=== PATIENT | female | born 1995 | race African-American/Black ===

== ENCOUNTER 2017-02-18 20:00 | Emergency (ER) | payer OTHER ==
--- NOTE | 2017-02-18 20:46 | ED ---
Abdominal Pain/Female - HPI Summary HPI Summary: 21 YEAR OLD FEMALE PRESENTS WITH COMPLAINS OF SEVERE EPIGASTRIC PAIN. - History of Current Complaint Chief Complaint: UCGI Stated Complaint: STOMACH Time Seen by Provider: 02/18/17 20:45 Hx Obtained From: Patient Hx Last Menstrual Period: 02/12/17 Onset/Duration: Sudden Onset Timing: Constant Severity Initially: Moderate Severity Currently: Moderate Pain Scale Used: 0-10 Numeric - 5 Location: Epigastric Radiates: No Allergies/Adverse Reactions: Allergies Allergy/AdvReac Type Severity Reaction Status Date / Time No Known Allergies Allergy Verified 02/18/17 20:36 PMH/Surg Hx/FS Hx/Imm Hx Endocrine/Hematology History: Denies: Hx Diabetes, Hx Thyroid Disease Cardiovascular History: Denies: Hx Hypertension Respiratory History: Reports: Hx Asthma Denies: Hx Chronic Obstructive Pulmonary Disease (COPD) GI History: Denies: Hx Ulcer History: Reports: Hx Kidney Stones, Hx Renal Disease Comment Only: Other Problems/Disorders - hx of kidney stones Neurological History: Comment Only: Other Neuro Impairments/Disorders - hx of migrains and hx of 3 o4 previous concussions - Surgical History Surgery Procedure, Year, and Place: 1996 inguinal hernia. 2003 tonsilectomy. 2006 left eyebrow angioma 2006. ectopic feb 2016 Infectious Disease History: No Infectious Disease History: Denies: Hx Clostridium Difficile, Hx Hepatitis, Hx Human Immunodeficiency Virus (HIV), Hx of Known/Suspected MRSA, Hx Shingles, Hx Tuberculosis, Hx Known/ Suspected VRE, Hx Known/Suspected VRSA, History Other Infectious Disease, Traveled Outside the [place] in Last 30 Days - Social History Alcohol Use: None Substance Use Type: Reports: None Smoking Status (MU): Never Smoked Tobacco Have You Smoked in the Last Year: No Review of Systems Constitutional: Negative Eyes: Negative ENT: Negative Cardiovascular: Negative Respiratory: Negative Positive: Abdominal Pain Genitourinary: Negative Musculoskeletal: Negative Skin: Negative Neurological: Negative Psychological: Normal All Other Systems Reviewed And Are Negative: Yes Physical Exam Vital Signs On Initial Exam: Initial Vitals Temp Pulse Resp BP Pulse Ox 36.6 C 84 16 125/57 100 02/18/17 20:29 02/18/17 20:29 02/18/17 20:29 02/18/17 20:29 02/18/17 20:29 Diagnostics - Vital Signs Vital Signs Temp Pulse Resp BP Pulse Ox 02/18/17 20:29 36.6 C 84 16 125/57 100 - Laboratory Lab Statement: Any lab studies that have been ordered have been reviewed, and results considered in the medical decision making process. Abdominal Pain Fem Course/Dx - Diagnoses Provider Diagnoses: Epigastric abdominal pain Discharge - Discharge Plan Condition: Stable Disposition: HOME Patient Education Materials: Acute Abdominal Pain (ED) Referrals: Amisha Serna MD [Medical Doctor] - Additional Instructions: PATIENT SUGGESTED TO GO TO THE ER FOR ABDOMINAL PAIN.
[2017-02-18 20:48] VITALS: BP 125/57
== END 2017-02-18 20:58 | disposition home or self-care (01) ==
LOC: UCEAST 20:00
DX: R10.13 Epigastric pain (principal); J45.909 Unspecified asthma, uncomplicated; Z87.442 Personal history of urinary calculi
CPT/HCPCS: 99211; G0463

== ENCOUNTER 2017-02-18 21:20 | Emergency (ER) | payer OTHER ==
[2017-02-18 22:54] LABS: Hematocrit 37 % (35-47); Hemoglobin 12.3 g/dl (12.0-16.0); Mean Corpuscular HGB Conc 34 g/dl (31-36); Mean Corpuscular Hemoglobin 30 pg (27-31); Mean Corpuscular Volume 89 fL (80-97); Mean Platelet Volume 7 um3 (7.4-10.4); Red Blood Count 4.12 10^6/ul (4.0-5.4); Red Cell Distribution Width 14 % (10.5-15); White Blood Count 5.7 10^3/ul (3.5-10.8)
[2017-02-18 23:09] LABS: Albumin 4.4 g/dL (3.2-5.2); BUN/Creatinine Ratio 11.7 (8-20); Calcium 9.4 mg/dL (8.6-10.3); EGFR African American 120.6 (>60); EGFR Non-African American 93.7 (>60); Globulin 2.7 g/dL (2-4); Potassium 3.7 mmol/L (3.5-5.0); Total Bilirubin 0.3 mg/dL (0.2-1.0); Total Protein 7.1 g/dL (6.4-8.9)
[2017-02-18 23:25] LABS: Urine Bacteria Absent (Absent)
[2017-02-18 23:27] LABS: Urine Bilirubin Negative (Negative); Urine Glucose Negative (Negative); Urine Nitrite Negative (Negative)
[2017-02-18 23:38] LABS: UR Preg Internal Control QC Line Present
[2017-02-18 23:39] LABS: Manual Entry Verification ABI0007
[2017-02-18] MEDS ORDERED: NS 0.9% 1000 ML* 2,000 ML IV ONE (23:40)
[2017-02-18] MEDS ORDERED: Ondansetron INJ* 2 MG/ML VIAL IV ONE (23:40)
[2017-02-18] MEDS ORDERED: Pantoprazole IV* 40 MG IV ONE (23:40)
[2017-02-19] MEDS ORDERED: Al Hydrox/Mg Hydrox/Simet LIQ* 30 ML UDC PO ONE (01:29)
[2017-02-19] MEDS ORDERED: Lidocaine 2% VISCOUS* 15 ML UDC PO ONE (01:29)
--- NOTE | 2017-02-19 02:26 | ED ---
Kishore Stevens Nikita, scribed for Chau Candelario MD on 02/18/17 at 2342 . Abdominal Pain/Female - HPI Summary HPI Summary: This patient is a 21 year old F presenting to ED with a chief complaint of epigastric abdominal pain since 4 days ago. The CC is described as constant, burning and sharp pain. The patient rates the pain 6/10 in severity. Symptoms aggravated by PO. Symptoms alleviated by nothing. Patient reports nausea, chills , vomiting, soft stool with streaks of bright red blood (2x today), and light- headed. Patient denies urinary symptoms, and vaginal discharge. LMP ended 2 days ago. - History of Current Complaint Chief Complaint: EDAbdPain Stated Complaint: ABD PAIN/VOMITING Time Seen by Provider: 02/18/17 23:31 Hx Obtained From: Patient Hx Last Menstrual Period: CURRENT Onset/Duration: Sudden Onset, Lasting Days - 4 days ago, Still Present Timing: Constant Severity Initially: Moderate Severity Currently: Moderate Pain Intensity: 6 Pain Scale Used: 0-10 Numeric Location: Epigastric Radiates: No Character: Sharp, Burning Aggravating Factor(s): Food Alleviating Factor(s): Nothing Associated Signs and Symptoms: Positive: Other: - Patient reports nausea, chills , vomiting, soft stool with streaks of bright red blood (2x today), and light- headed. Patient denies urinary symptoms, and vaginal discharge. Allergies/Adverse Reactions: Allergies Allergy/AdvReac Type Severity Reaction Status Date / Time No Known Allergies Allergy Verified 02/18/17 20:36 PMH/Surg Hx/FS Hx/Imm Hx Endocrine/Hematology History: Denies: Hx Diabetes, Hx Thyroid Disease Cardiovascular History: Denies: Hx Hypertension Respiratory History: Reports: Hx Asthma Denies: Hx Chronic Obstructive Pulmonary Disease (COPD) GI History: Denies: Hx Ulcer History: Reports: Hx Kidney Stones, Hx Renal Disease Comment Only: Other Problems/Disorders - hx of kidney stones Neurological History: Comment Only: Other Neuro Impairments/Disorders - hx of migrains and hx of 3 o4 previous concussions - Surgical History Surgery Procedure, Year, and Place: 1996 inguinal hernia. 2003 tonsilectomy. 2006 left eyebrow angioma 2006 Infectious Disease History: Unable to Obtain/Confirm Infectious Disease History: Denies: Hx Clostridium Difficile, Hx Hepatitis, Hx Human Immunodeficiency Virus (HIV), Hx of Known/Suspected MRSA, Hx Shingles, Hx Tuberculosis, Hx Known/ Suspected VRE, Hx Known/Suspected VRSA, History Other Infectious Disease, Traveled Outside the [place] in Last 30 Days - Social History Alcohol Use: None Substance Use Type: Reports: None Smoking Status (MU): Never Smoked Tobacco Have You Smoked in the Last Year: No Review of Systems Positive: Chills Positive: Abdominal Pain - epigastric, Vomiting, Diarrhea - soft stool with streaks of bright red blood, Nausea Positive: no symptoms reported. Negative: discharge Neurological: Other - light-headed All Other Systems Reviewed And Are Negative: Yes Physical Exam Triage Information Reviewed: Yes Vital Signs On Initial Exam: Initial Vitals Temp Pulse Resp BP Pulse Ox 99.1 F 76 17 110/76 100 02/18/17 21:46 02/18/17 21:46 02/18/17 21:46 02/18/17 21:46 02/18/17 21:46 Vital Signs Reviewed: Yes Appearance: Positive: Ill-Appearing - mild Skin: Positive: Warm, Skin Color Reflects Adequate Perfusion, Dry Head/Face: Positive: Normal Head/Face Inspection Eyes: Positive: EOMI, ENOCH ENT: Positive: Normal ENT inspection, Other - Oral mucosa moist Neck: Positive: Supple, Nontender Respiratory/Lung Sounds: Positive: Clear to Auscultation, Breath Sounds Present Cardiovascular: Positive: RRR Abdomen Description: Positive: Soft, Other: - Tender at epigastrium Bowel Sounds: Positive: Present Musculoskeletal: Positive: Normal, Strength/ROM Intact Neurological: Positive: Normal, Sensory/Motor Intact, Alert, Oriented to Person Place, Time Psychiatric: Positive: Affect/Mood Appropriate Diagnostics - Vital Signs Vital Signs Temp Pulse Resp BP Pulse Ox 02/18/17 21:46 99.1 F 76 17 110/76 100 - Laboratory Lab Results: Lab Results 02/18/17 02/18/17 02/18/17 Range/Units 22:05 22:36 22:36 WBC 5.7 (3.5-10.8) 10^3/ul RBC 4.12 (4.0-5.4) 10^6/ul Hgb 12.3 (12.0-16.0) g/dl Hct 37 (35-47) % MCV 89 (80-97) fL MCH 30 (27-31) pg MCHC 34 (31-36) g/dl RDW 14 (10.5-15) % Plt Count 373 (150-450) 10^3/ul MPV 7 L (7.4-10.4) um3 Sodium 140 (133-145) mmol/L Potassium 3.7 (3.5-5.0) mmol/L Chloride 108 (101-111) mmol/L Carbon Dioxide 26 (22-32) mmol/L Anion Gap 6 (2-11) mmol/L BUN 9 (6-24) mg/dL Creatinine 0.77 (0.51-0.95) mg/dL Est GFR ( Amer) 120.6 (>60) Est GFR (Non-Af Amer) 93.7 (>60) BUN/Creatinine Ratio 11.7 (8-20) Glucose 97 (70-100) mg/dL Calcium 9.4 (8.6-10.3) mg/dL Total Bilirubin 0.30 (0.2-1.0) mg/dL AST 14 (13-39) U/L ALT 6 L (7-52) U/L Alkaline Phosphatase 48 (34-104) U/L Total Protein 7.1 (6.4-8.9) g/dL Albumin 4.4 (3.2-5.2) g/dL Globulin 2.7 (2-4) g/dL Albumin/Globulin Ratio 1.6 (1-3) Urine Color Yellow Urine Appearance Turbid Urine pH 5 (5-9) Ur Specific Otis 1.035 H (1.010-1.030) Urine Protein Negative (Negative) Urine Ketones Negative (Negative) Urine Blood Negative (Negative) Urine Nitrate Negative (Negative) Urine Bilirubin Negative (Negative) Urine Urobilinogen Negative (Negative) Ur Leukocyte Esterase Negative (Negative) Urine WBC (Auto) Absent (Absent) Urine RBC (Auto) Absent (Absent) Ur Squamous Epith Cells Present H (Absent) Amorphous Crystals Present H (Absent) Urine Bacteria Absent (Absent) Urine Glucose Negative (Negative) Urine Ascorbic Acid * H (Negative) Urine Test Negative (Negative) Result Diagrams: 02/18/17 22:36 02/18/17 22:36 Lab Statement: Any lab studies that have been ordered have been reviewed, and results considered in the medical decision making process. - Ultrasound No standard instances Ultrasound Interpretation Completed By: Radiologist - Abdomen US reveals unremarkable gallbladder, liver, right kidney and visualized aorta and pancreas. No biliary dilatation. ED physician has reviewed this radiology report and agrees. Re-Evaluation - Re-Evaluation First Eval Re-Evaluation Time: 02:16 Change: Improved - improved but not much Comment: Discussed with pt radiology results. Discussed discharge plan. Abdominal Pain Fem Course/Dx - Course Course Of Treatment: This patient is a 21 year old F presenting to ED with a chief complaint of epigastric abdominal pain since 4 days ago. The CC is described as constant, burning and sharp pain. The patient rates the pain 6/10 in severity. Symptoms aggravated by PO. Symptoms alleviated by nothing. Patient reports nausea, chills, vomiting, soft stool with streaks of bright red blood ( 2x today), and light-headed. Patient denies urinary symptoms, and vaginal discharge. Abdomen US reveals unremarkable gallbladder, liver, right kidney and visualized aorta and pancreas. No biliary dilatation. ED physician has reviewed this radiology report and agrees. In the ED course, pt was given fluids and Zofran. Medications reviewed. Pt will be discharged. Pt is agreeable with this plan. DISCUSSED RESULTS WITH PATIENT. RX OMEPRAZOLE AND CARAFATE. STOOL WAS DARK GREEN WITH STREAKS OF BLOOD MAKING BLOOD SOURCE MORE LIKELY LOWER GI. H/H WNL. F/U PMD; RETURN IF WORSE. - Diagnoses Provider Diagnoses: Epigastric pain, GI bleed Discharge - Discharge Plan Condition: Stable Disposition: HOME Prescriptions: Omeprazole CAP* [Prilosec CAP* 20 MG] 20 mg PO BID #60 cap. Sucralfate TAB* [Carafate*] 1 gm PO QID #90 tab Patient Education Materials: Epigastric Pain (ED), Rectal Bleeding (ED) Referrals: No Primary Care Phys,NOPCP [Primary Care Provider] - Additional Instructions: FOLLOW UP WITH YOUR DOCTOR. RETURN TO THE EMERGENCY DEPARTMENT FOR ANY WORSENING OF YOUR CONDITION; PAIN, FEVER, VOMITING, BLOOD IN YOUR STOOL, YOU FEEL ILL, YOU FEEL LIKE PASSING OUT OR QUESTIONS OR CONCERNS. The documentation as recorded by the Kishore perez Nikita accurately reflects the service I personally performed and the decisions made by me, Chau Candelario MD.
[2017-02-19 03:05] VITALS: BP 112/73
--- NOTE | 2017-02-19 08:07 | RAD ---
Indication: Epigastric pain. Real-time sonography of the right upper quadrant was performed. The liver is normal in size measuring up to 14.6 cm in length. The gallbladder is partially contracted. No definite gallstones, pericholecystic fluid or wall thickening is noted. The common duct measures 3 mm. Right kidney measures 8.9 x 4.2 x 4.5 cm with no cirrhosis. The pancreas head, neck and proximal body demonstrates no mass or pancreatic duct dilatation. The aorta and inferior vena cava are unremarkable. IMPRESSION: Contracted gallbladder with no evidence of cholelithiasis or biliary duct dilatation.
== END 2017-02-19 03:05 | disposition home or self-care (01) ==
LOC: ED 21:20
DX: K92.2 Gastrointestinal hemorrhage, unspecified (principal); R10.13 Epigastric pain; R11.10 Vomiting, unspecified; R19.7 Diarrhea, unspecified
CPT/HCPCS: 36415; 76705; 80053; 81003; 81025; 83690; 85027; 96365; 96375; 99283; A9270-GY; J2405